=== PATIENT | male | born 1940 | race Caucasian/White ===

== ENCOUNTER → 2017-12-31 | Outpatient (CLI) | payer MEDICARE ==
--- NOTE | 2017-12-31 08:08 | RADIOLOGY REPORT (SQ) ---
EXAM DESCRIPTION: U/S RETROPERITON (RENAL/AORTA) COMPLETED DATE/TIME: 12/31/2017 7:48 am REASON FOR STUDY: CKD III (N18.3), TYPE 2 DIABETES (E11.9), HTN (I10) N18.3 CHRONIC KIDNEY DISEASE, STAGE 3 (MODERATE) COMPARISON: None. TECHNIQUE: Dynamic and static grayscale images acquired of the kidneys and bladder and recorded on P ACS. Additional selected color Doppler and spectral images recorded. LIMITATIONS: None. FINDINGS: RIGHT KIDNEY: The right kidney measures 10.4 cm in length. Cortical thinning is noted wit h irregularity of the cortex suggesting scarring. Increased echogenicity of renal parenchyma consist ent with chronic medical renal disease. No hydronephrosis. Doppler flow identified. LEFT KIDNEY: The left kidney measures 11 cm in length. Cortical thinning is noted with irregular to the cortex suggesting scarring. Increased echogenicity of renal parenchyma consistent chronic medic al renal disease. No hydronephrosis. Doppler flow identified. BLADDER: Bilateral ureteral jets. No abnormality seen. IMPRESSION: Findings consistent with chronic medical renal disease. TECHNICAL DOCUMENTATION: JOB ID: [id number] [employer]- All Rights Reserved Reading location - IP/workstation name: [email or web address]
== END ==
LOC: RAD 07:02
PROVIDERS: ATTEND Internal Medicine Nephrology
DX: E11.22 Type 2 diabetes mellitus with diabetic chronic kidney disease (principal); I12.9 Hypertensive chronic kidney disease with stage 1 through stage 4 chronic kidney disease, or unspecified chronic kidney disease; N18.3 Chronic kidney disease, stage 3 (moderate)
CPT/HCPCS: 76770